=== PATIENT | female | born 1995 | race Hispanic/Latino ===

== ENCOUNTER 2023-02-03 07:52 | Emergency (ER) | payer MEDICAID ==
[~2023-02-03] VITALS: Ht 170.2 cm; Wt 86.0 kg
[2023-02-03 08:11] VITALS: BP 119/77
[2023-02-03 08:30] VITALS: BP 127/75
[2023-02-03 08:30] LABS: BASO% 0.3 % (0-3); EOS% 6.2 % (0-8); HEMOGLOBIN 14.5 g/dl (12.0-16.0); IMMATURE GRANULOCYTES 0.3 % (0.0-5.0); LYMPH% 27.1 % (15-41); MEAN CELL VOLUME 80.8 fL CALC (80.0-100.0); MEAN CORPUSCULAR HGB CONC 32.2 g/dL CAL (32.0-36.0); MONO% 7.4 % (2-13); NEUT# 5.09 thou/uL (2.00-7.15); NEUT% 58.7 % (42-76); RED BLOOD COUNT 5.57 mill/uL (4.20-5.60); RED CELL DISTRI WIDTH 13.4 % (11.5-15.5)
[2023-02-03 08:50] LABS: ALBUMIN 4.2 g/dL (3.2-5.0); ALKALINE PHOSPHATASE 63 u/l (38-126); ANION GAP 12 (6-22 (CALC)); BUN 13 mg/dL (7-17); BUN/CREATININE RATIO 20 (12-20 (CALC)); CARBON DIOXIDE 24 mmol/l (22-30); CHLORIDE 106 mmol/l (95-108); CREATININE 0.6 mg/dL (0.5-1.0); GFR FOR AFR.AMER. > 60 ML/MIN (>=60 (CALC)); GFR OTHER RACES > 60 ML/MIN (>=60 (CALC)); POTASSIUM 4.3 mmol/l (3.5-5.1); SGOT/AST 32 u/l (14-36); SODIUM 138 mmol/l (137-146); TOTAL PROTEIN 7.2 g/dL (6.3-8.2)
[2023-02-03 09:00] VITALS: BP 117/75
[2023-02-03 09:06] LABS: BETA-HCG, QUANT(RESULT NUMBER) <2 mIU/mL
[2023-02-03 09:16] VITALS: BP 112/68
[2023-02-03 09:18] VITALS: BP 112/68
== END 2023-02-03 09:27 | disposition home or self-care (01) ==
LOC: ED 07:52
PROVIDERS: Family Medicine
DX: N93.9 Abnormal uterine and vaginal bleeding, unspecified (principal)